=== PATIENT | male | born 2000 | race Hispanic/Latino ===

== ENCOUNTER 2019-11-30 21:29 | Emergency (ER) | payer OTHER ==
[2019-11-30] MEDS ORDERED: TETANUS/DIPHTHERIA TOXOID [ADULT] 0.5 ML VIAL IM ONE (21:58)
[2019-11-30] MEDS ORDERED: LIDOCAINE HCL 1% 20 ML VIAL ONE (21:58)
== END 2019-11-30 23:10 | disposition home or self-care (01) ==
LOC: EDH 21:29
DX: S61.211A Laceration without foreign body of left index finger without damage to nail, initial encounter (principal); X58.XXXA Exposure to other specified factors, initial encounter; Y93.89 Activity, other specified; Y92.098 Other place in other non-institutional residence as the place of occurrence of the external cause; Y99.8 Other external cause status; Z72.0 Tobacco use
CPT/HCPCS: 12001; 90471; 90714

== ENCOUNTER 2019-12-16 12:51 | Emergency (ER) | payer SELFPAY | END 2019-12-16 13:37 | disposition home or self-care (01) | LOC: EDH 12:51 | DX: S61.412D Laceration without foreign body of left hand, subsequent encounter (principal); Z72.0 Tobacco use; X58.XXXD Exposure to other specified factors, subsequent encounter | CPT/HCPCS: 99281 ==